=== PATIENT | female | born 2000 | race Two or more races ===

== ENCOUNTER 2025-04-12 09:11 | Emergency (ER) | payer MEDICAID, SELFPAY ==
[2025-04-12 09:12] VITALS: BMI 27.3
--- NOTE | 2025-04-12 09:46 | XR_ITS ---
Examination: CT abdomen and pelvis without contrast. Coronal 3-D reconstructions. Sagittal 2-D reconstructions. Date and time of exam:April 12, 2025 1158 hours INDICATIONS: Generalized abdominal pain with nausea beginning 3 days ago CTDI: vol (mGy): 8.41 DLP: (mGycm): 447 Technique: Axial images of the abdomen have been obtained, 3 mm slice thickness Intravenous contrast material has not been administered. Low dose protocols were performed. One or more of the following dose reduction techniques were used; automated exposure control, adjustment of the mA and/or KV according to patient size, use of iterative reconstruction technique. Findings: No focal liver or splenic lesions No definite gallstones No pancreatic or adrenal mass No renal or ureteral calculi, no hydronephrosis No bowel obstruction Normal appendix No diverticulitis Retroverted uterus Mild free fluid in the pelvis Bladder intact IMPRESSION: No renal or ureteral calculi, no hydronephrosis Normal appendix Mild free fluid in pelvis, consider pelvic sonography follow-up
[2025-04-12 09:47] VITALS: BP 142/88; PULSE 63; RESP 16; TEMP 36.3; O2SAT 100; BMI 27.0
--- NOTE | 2025-04-12 09:47 | PD.EDRME ---
Rapid Medical Screening Exam RME Arrival date/time: 04/12/25 09:11 24-year-old female with no known medical history presents to the emergency room with a chief complaint of bilateral lower abdominal pain, nausea, vomiting x 3 days I have greeted and performed a focused initial assessment of this patient. A comprehensive ED assessment and evaluation of the patient, analysis of all test results, and completion of the medical decision making process will be conducted by additional ED providers. Chief Complaint: Abdominal Pain Time Seen by Provider: 04/12/25 09:43 Vital signs reviewed by provider: Yes
[2025-04-12 10:14] LABS: Basophils % (Auto) 0 % (0-2.5); Eosinophils # (Auto) 0.1 Thou/mm3 (0.0-0.5); Eosinophils % (Auto) 2 % (0-10); Hematocrit 37.1 % (36.0-46.0); Hemoglobin 12.8 g/dL (12.0-16.0); Immature Granulocytes % (Auto) 0 % (0-0); Immature Granulocytes Auto 0.02 Thou/mm3 (0.00-0.00); Lymphocytes # (Auto) 2.3 Thou/mm3 (1.0-4.8); Lymphocytes % (Auto) 38 % (10-50); Mean Corpuscular HGB Conc 34.5 g/dl (31.0-37.0); Mean Corpuscular Hemoglobin 29.6 pg (25.0-35.0); Mean Corpuscular Volume 86 fL (80-100); Monocytes # (Auto) 0.5 Thou/mm3 (0.0-0.8); Monocytes % (Auto) 8 % (0-12); Neutrophils # (Auto) 3.2 Thou/mm3 (1.8-7.7); Neutrophils % (Auto) 52 % (37-80); Nucleated Red Blood Cell % 0 /100 WBC (0); Platelet Count 284 Thou/mm3 (140-440); RDW Standard Deviation 39.5 fL (36.4-46.3); Red Blood Count 4.32 Miln/mm3 (4.00-5.20); White Blood Count 6.1 Thou/mm3 (3.6-11.0)
[2025-04-12 10:52] LABS: Collection Type, Urine Clean Catch
[2025-04-12 11:15] VITALS: BP 149/88; PULSE 76; RESP 18; TEMP 37; O2SAT 100
[2025-04-12 11:17] LABS: Alanine Aminotransferase 10 U/L (10-49); Albumin, Serum 4.1 gm/dL (3.5-5.0); Albumin/Globulin Ratio 1.6 (1.2-2.2); Alkaline Phosphatase 81 U/L (46-116); Anion Gap 7 (7-16); Aspartate Amino Transferase 14 U/L (0-34); BUN/Creatinine Ratio 12 Ratio (12-20); Bilirubin,Total 0.6 mg/dL (0.3-1.2); Blood Urea Nitrogen 7 mg/dL (9-23); Calcium 8.6 mg/dL (8.3-10.6); Calcium (Corrected) 8.6 mg/dL (8.5-10.1); Carbon Dioxide 25.6 mMol/L (20.0-31.0); Chloride 108 mMol/L (98-107); Creatinine (Component) 0.6 mg/dL (0.6-1.3); Estimated Creatinine Clearance 163.6 mL/min (>60); Globulin 2.6 gm/dL (2.3-3.5); Glucose 79 mg/dL (74-106); Lipase 32 U/L (12-53); Osmolality,Calculated 278 (275-295); Potassium 4.1 mMol/L (3.4-5.1); Sodium 141 mMol/L (136-145); Total Protein 6.7 gm/dL (5.7-8.2); eGFR > 60 See Note
[2025-04-12 11:28] LABS: HCG Qualitative,Urine Negative
[2025-04-12 11:32] LABS: Bacteria,Urine 3+; Bilirubin,Urine Negative (Negative); Blood,Urine Negative (Negative); Color,Urine Lt-Yellow (Lt Yel-Yel); Glucose, Urine Negative (Negative); Ketones,Urine Negative (Negative); Leukocyte Esterase,Urine Negative (Negative); Nitrite,Urine Positive (Negative); PH,Urine 6.5 (5.0-7.0); Protein,Urine Negative (Neg - Trace); RBC,Urine 1 /hpf (0-3); Specific Gravity,Urine 1.012 (1.001-1.035); Squamous Epithelial Cell,Urine 6 /hpf (0-5); Urobilinogen,Urine Negative mg/dL (0.0-1.0); WBC,Urine 1 /hpf (0-5)
[2025-04-12 11:49] LABS: Clarity,Urine Hazy (Clear/Hazy)
[2025-04-12 14:54] VITALS: BP 146/92; PULSE 65; RESP 16; TEMP 36.8; O2SAT 100
--- NOTE | 2025-04-12 15:23 | PD.EDADULT ---
ED General RME/HPI General Chief complaint: Abdominal Pain Stated complaint: ABD PAIN RADIATING TO L BACK X2 DAYS Time Seen by Provider: 04/12/25 09:43 Arrival date/time: 04/12/25 09:11 CC: Diffuse abdominal pain with nausea vomiting x 3 days and prior history of similar events 4 months ago was seen in [place] given medication with her spontaneously resolved PE. Patient denies any fever chills chest pain shortness of breath or difficulty breathing no other complaints at this time. The patient is currently afebrile nontoxic-appearing and not in any acute distress. Patient states he took OTC Tylenol without any relief. RME / HPI RME / HPI narrative: 04/12/25 09:11 24-year-old female with no known medical history presents to the emergency room with a chief complaint of bilateral lower abdominal pain, nausea, vomiting x 3 days I have greeted and performed a focused initial assessment of this patient. A comprehensive ED assessment and evaluation of the patient, analysis of all test results, and completion of the medical decision making process will be conducted by additional ED providers. Related Data Previous Rx's ?Medication ?Instructions ?Recorded ciprofloxacin HCl 500 mg tablet 500 mg PO BID #14 tabs 04/12/25 (Cipro) dicyclomine 20 mg tablet 20 mg PO BID #7 tabs 04/12/25 famotidine 20 mg tablet 20 mg PO QDAY #14 tabs 04/12/25 Allergies Allergy/AdvReac Type Severity Reaction Status Date / Time No Known Allergies Allergy Verified 04/12/25 09:15 Review of Systems Review of Systems Narrative Review of Systems: GEN: No fever, no chills, no weight loss EYES: No discharge, no visual changes, no pain HEENT: No ear pain, no congestion, no sore throat PULM: No shortness of breath, no cough, no congestion CV: No chest pain, no dyspnea on exertion, no palpitations GI: + nausea, + vomiting, no diarrhea, + pain, no constipation : No frequency, no urgency, no dysuria MUSC/SKEL: No joint pain, no back pain SKIN: No rash PSYCH: No hallucinations, no depression HEME/LYMPH: No easy bleeding or bruising tendencies NEURO: No weakness, no headache ED Exam Narrative Physical exam: [General: Not in any acute distress Head normocephalic HEENT: Within acceptable limits Neck is supple nontender Chest equal chest rise nontender to palpation Respiratory: Clear to auscultation no wheezes crackles or rubs CV: Rate rhythm is regular no murmurs rubs or clicks Abdomen no diffuse tenderness with palpation of the abdomen positive bowel sounds in all 4 quadrants. Back: No CVA tenderness no spinous process tenderness from cervical spine thoracic and lumbar spine Skin: Intact no petechiae rash induration ulceration or crepitus Extremities: Moving all extremity against resistance cap refill less than 2 seconds neurosensory intact Neuro: Awake alert oriented x3 Glascow coma 15 no focal deficits] Course Quality Measures none Orders Category Date Time Status CT abdomen pelvis wo con Stat Exams 04/12/25 09:46 Completed CBC Stat Lab 04/12/25 09:53 Completed CMP [Comprehensive Metabolic Panel] Stat Lab 04/12/25 09:53 Completed HCG Qualitative,Urine Stat Lab 04/12/25 10:40 Completed Lipase Stat Lab 04/12/25 09:53 Completed UA [Urinalysis] Stat Lab 04/12/25 10:40 Completed Urine Culture Stat Lab 04/12/25 10:40 Received Vital Signs Vital signs: Vital Signs Temperature 97.4 F 04/12/25 09:47 Pulse Rate 63 04/12/25 09:47 Respiratory Rate 16 04/12/25 09:47 Blood Pressure 142/88 H 04/12/25 09:47 Pulse Oximetry (%) 100 04/12/25 09:47 Oxygen Delivery Method Room Air 04/12/25 09:47 Discharge Plan Plan Patient Disposition: HOME (Self Care) Patient condition on transfer: Stable Prescriptions/Referrals Prescriptions/Med Rec: New ciprofloxacin HCl [Cipro] 500 mg tablet 500 mg PO BID Qty: 14 0RF dicyclomine 20 mg tablet 20 mg PO BID Qty: 7 0RF famotidine 20 mg tablet 20 mg PO QDAY Qty: 14 0RF Referrals: Mark Duran MD [Physician] - In 1 week No Primary/Family,Physician [Primary Care Provider] - In 1 week Problem List Clinical Impression: UTI (urinary tract infection), Abdominal pain, Nausea & vomiting Patient/Caregiver Discharge Instructions Education Materials: Abdominal Pain, Nausea Vomit Control-Cancer Care, ED CYSTITIS Female Adult Print Language: Portuguese Stand Alone Forms: Shoshana Award Info., Work/School Release, Patient Portal Info Letter PA/FILM SORTER Supervising Physician VELVET Supervising Physician: Bob PARISP [facility] Clinical Information Provided by: patient and friend Medical Records reviewed [facility] Meds/Rx considered, not ordered None Labs/Rad/Tests considered, not ordered None Labs Labs: interpreted by ma Lab(s) Interpretation(s): CBC shows no acute leukocytosis anemia thrombocytopenia CMP shows a chloride of 108 BUN is 7 no other acute electrolyte imbalances or renal impairment transaminitis or T. bili elevation Lipase is 32 Urine is negative for urinary tract infection although the patient does have 3+ bacteria there is no leukocyte Estrace or and positive for nitrites
== END 2025-04-12 16:02 | disposition home or self-care (01) ==
PROVIDERS: Nurse Practitioner Family; Emergency Provider Emergency Medicine
DX: N39.0 Urinary tract infection, site not specified (principal); R10.32 Left lower quadrant pain; R10.31 Right lower quadrant pain; R11.2 Nausea with vomiting, unspecified
CPT/HCPCS: 36415; 74176; 80053; 81001; 81025; 83690; 85025; 87077; 87086; 87186; 99284

== ENCOUNTER 2025-08-05 08:41 | Emergency (ER) | payer OTHER, SELFPAY ==
[2025-08-05 08:43] VITALS: BMI 29.8
[2025-08-05 08:52] VITALS: BP 149/93; PULSE 62; RESP 18; TEMP 36.8; O2SAT 100
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
[2025-08-05 09:53] LABS: HCG Qualitative,Urine Negative
== END 2025-08-05 10:50 | disposition home or self-care (01) ==
PROVIDERS: Nurse Practitioner Primary Care; Emergency Provider Family Medicine
DX: M54.9 Dorsalgia, unspecified (principal)
CPT/HCPCS: 72072; 72170; 81025; 99283